=== PATIENT | female | born 1950 | race Caucasian/White ===

== ENCOUNTER 2019-05-26 17:04 | Inpatient (IN) | payer MEDICARE, BC ==
[2019-05-26 17:40] VITALS: BP 122/61
[2019-05-26] MEDS ORDERED: SYNTHROID50 MCG PO (17:51)
[2019-05-26] MEDS ORDERED: ZOLOFT100 MG PO (17:51)
[2019-05-26] MEDS ORDERED: NEXIUM20 MG PO (17:52)
[2019-05-26] MEDS ORDERED: VITAMIN D5000 UNIT PO (17:55)
[2019-05-26] MEDS ORDERED: GLUCOPHAGE500 MG PO (17:56)
[2019-05-26] MEDS ORDERED: COZAAR25 MG PO (17:56)
[2019-05-26] MEDS ORDERED: TRIGLIDE160 MG PO (17:57)
[2019-05-26] MEDS ORDERED: CLARITIN 10 MG10 MG PO (17:57)
[2019-05-26] MEDS ORDERED: CYTOTEC200 MCG PO (17:58)
--- NOTE | 2019-05-26 18:37 | NUR ---
PT ADMITTED FROM [facility] FOR AGGRESSION. [facility] REPORTED THAT THE PT WAS REFUSING CARE AND COMBATIVE WITH STAFF. UPON ADMIT PT YELLING AT NURSE AND VERY AGITATED. PT HAS HER OWN WALKER AND WEARING HER GLASSES. CONSENT FOR ADMIT OBTAINED FROM BROTHER AND POYong VELASQUEZ. PT IS A DNR AND CODE WORD IS SARAH.
[2019-05-26 20:00] VITALS: BP 122/68
--- NOTE | 2019-05-26 23:50 | NUR ---
B.) PT IS ALERT AND ORIENTED TO SELF ONLY. SHE HAS POOR INSIGHT INTO HER SITUATION. SHE HAS LITTLE TO NO SHORT TERM MEMORY. SHE IS ABLE TO AMBULATE WITH WALER. SHE IS PLEASANT WITH STAFF. I.) REDIRECT OFTEN R.) DIFFICULT TO REDIRECT. P.) CONTINUE PLAN OF CARE
[2019-05-27 01:27] VITALS: BP 122/61; BMI 27.4
[2019-05-27 05:56] LABS: BASOPHILS 0.4 % (0-2); EOSINOPHILS 1.4 % (0-7); HEMATOCRIT 38.3 % (36.0-48.0); HEMOGLOBIN 11.3 g/dL (12-16); IMMATURE GRANULOCYTES 0.2 % (0-5); LYMPHOCYTES 18.9 % (15-50); MCH 22.7 pg (26.0-34.0); MCHC 29.5 g/dL (31.0-37.0); MCV 76.9 fL (80.0-100.0); MONOCYTES 14.1 % (2-11); PLATELET COUNT 199 10x3/uL (130-400); RBC 4.98 10x6/uL (4.00-5.40); RDW 15.8 % (11.5-14.5); WBC 4.9 10x3/uL (4.8-10.8)
[2019-05-27 06:17] LABS: ALBUMIN 3.5 g/dL (3.4-5.0); ANION GAP 9.6 mmol/L (8-16); BILIRUBIN - TOTAL 0.31 mg/dL (0.2-1.3); CALCIUM 9.4 mg/dL (8.5-10.1); CARBON DIOXIDE 33.4 mmol/L (21.0-32.0); CHOL - HDL RATIO 4.9 ratio (2.3-4.1); LDL-HDL RATIO 3.4 ratio (1.5-3.5); PROTEIN - SERUM 7.2 g/dL (6.4-8.2); THYROID STIMULATING HORMONE 1.5 uIU/mL (0.36-3.74)
[2019-05-27 08:58] VITALS: BP 121/72
--- NOTE | 2019-05-27 10:00 | NUR ---
RECEIVED PATIENT IN DINING ROOM FOR B'FAST, ALERT, CALM, COOPERATIVE, PLEASANT MOOD, QUITE CONFUSED. AWAITING MED ORDERS AT THIS TIME. NO AGGRESSION OR ADVERSE BEHAVIORS NOTED. CONT TO MONITOR.
[2019-05-27 10:36] VITALS: Wt 72.0 kg
[2019-05-27 20:20] VITALS: BP 140/60
--- NOTE | 2019-05-28 00:55 | NUR ---
B) Patient is alert and oriented to person, calm and cooperative toward staff I) Administered scheduled medications as ordered, monitored for needs R) mediation compliant, quiet and cooperative, P) Continue plan of care.
[2019-05-28 08:11] LABS: RAPID PLASMA REAGIN Non Reactive (Non Reactive)
[2019-05-28 08:57] VITALS: BP 146/70
--- NOTE | 2019-05-28 09:15 | NUR ---
RECEIVED PATIENT IN DINING ROOM FOR B'FAST, ALERT, CALM, CONFUSED, COOPERATIVE MEDS ADMIN PER ORDERS WITH COMPLETE MED COMPLIANCE NOTED. NO AGGRESSION NOTED. CONT POC DIRECTED.
[2019-05-28 11:44] LABS: APPEARANCE HAZY (CLEAR); BACTERIA MANY /hpf (NEGATIVE); BILIRUBIN NEGATIVE (NEGATIVE); COLOR YELLOW (YELLOW); EPITHELIAL CELLS OCC /hpf (0-5); GLUCOSE NEGATIVE (NEGATIVE); KETONE NEGATIVE (NEGATIVE); MUCUS <1+ /lpf (NONE SEEN); NITRITE POSITIVE (NEGATIVE); PROTEIN NEGATIVE (NEGATIVE); RED CELLS - URINE RARE /hpf (0-5); UROBILINOGEN NORMAL (NORMAL)
--- NOTE | 2019-05-28 15:13 | PSY ---
PATIENT NAME:DASHA LUIS MEDICAL RECORD: [id number] : 46 LOCATION:DAMIAN Mcadams8 ADMISSION DATE: 05/26/19 ACCOUNT: [id number] PSYCHIATRIC EVALUATION DATE OF EVALUATION: 05/27/19 IDENTIFYING DATA: The patient is 68 years old and she is admitted to the hospital on a voluntary basis. CHIEF COMPLAINT: Aggression. HISTORY OF PRESENT ILLNESS: The patient lives in a care home. The care home is referring her to us because she has been aggressive there. In addition to the aggression, she has been yelling, refusing care and difficult to manage. The patient has little or no recollection of these events and in fact is only oriented to person. She denies that she would seek to harm herself or others, but it is clear she is quite confused. PAST MEDICAL HISTORY: Significant for diabetes, hypothyroidism, hypertension, and coronary artery disease. PAST PSYCHIATRIC HISTORY: Significant for depression; however, I do not have records regarding any other treatment. She is not taking any medications for dementia, but she clearly has it and it is not something that is new or in the early stages. So, if she has been diagnosed with dementia and I suspect she has, I do not have any knowledge of the details. FAMILY HISTORY: Unknown. The patient is not a good historian. ALLERGIES: PENICILLIN. CURRENT MEDICATIONS: Include Zoloft, Synthroid, Nexium, Glucophage, Cozaar, Claritin, and vitamin D3. SOCIAL HISTORY: The patient denies a history of drug or alcohol use. She says that she was once and that was for 15 years, but she says her 2 weeks ago. She does not know how long she has lived in a care home and in fact, she is not even sure she lives in a care home. She says she has never drank alcohol or smoked cigarettes. She also says she has never worked for a living. 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 MENTAL STATUS EXAMINATION: The patient is awake, alert, and oriented to person only. Her mood is flat. Her affect is constricted. Thought processes are circumstantial. Memory, concentration, and abstraction abilities are moderately impaired and she denies that she would seek to harm herself or others as well as psychotic symptoms. ASSETS: Supportive family members. LIABILITIES: Limited insight. DIAGNOSTIC IMPRESSION: AXIS I: Advanced major neurocognitive disorder of the Alzheimer's type with behavioral disturbances. AXIS II: Deferred. AXIS III: Diabetes, hypertension, hypothyroidism, and coronary artery disease. AXIS IV: Moderate. AXIS V: Global assessment of functioning is 30. PLAN: At this time, the patient is admitted to the hospital for a comprehensive medical, psychological, and social evaluation. She will be treated with both mood stabilizing and memory enhancing medications. Her long-term prognosis is guarded. TRANSINT:[id number] Voice Confirmation ID: [id number] DOCUMENT ID: [id number] ROSS CALDWELL MD at 1513 CC: [id number] DICTATION DATE: 05/27/19 1543 VOCATIONAL ADVISER: 05/27/19 1603 ADM IN [facility] [address] [id number]
--- NOTE | 2019-05-28 20:17 | NUR ---
PATIENT IS CONFUSED, NO YELLING NOTED AND NOT REFUSING CARE. COMPLIANT WITH MEDS. WILL FOLLOW POC
[2019-05-28 21:30] VITALS: BP 100/58
--- NOTE | 2019-05-29 09:59 | NUR ---
B) The patient is awake and alert. She is not yelling or displaying aggression this am. She ambulates with her walker. She needs assist with the toilet. She did go to the bathroom, but she continues to ooze BM. Did assist the patient with cleaning up and providing a clean brief. She has poor insight onto her situation. I) Provide prescribed meds. R) The patient is compliant with meds and unit milieu. P) Continue POC.
--- NOTE | 2019-05-29 11:06 | PN ---
PATIENT:DASHA LUIS MEDICAL RECORD: [id number] LOCATION:DAMIAN MikeYulisa112 ADMISSION DATE: 05/26/19 PROGRESS NOTE DATE OF SERVICE: 05/28/2019 SUBJECTIVE: The patient's case was discussed with staff. She has no new complaint. OBJECTIVE: The patient is in good behavioral control with limited insight about her condition. She tolerates her medicines well. She has not been aggressive and she today did a while personal care. ASSESSMENT: Dementia. PLAN: Current medicines have been reviewed and will be maintained. Long-term prognosis is guarded. TRANSINT:[id number] Voice Confirmation ID: [id number] DOCUMENT ID: [id number] ROSS CALDWELL MD at 1106 CC: [id number] DICTATION DATE: 05/28/19 1524 CORPORATE HUMAN RESOURCES MANAGER: 05/28/19 2312 ADM IN [facility] [address] [id number]
--- NOTE | 2019-05-29 20:15 | NUR ---
PT SITTING IN DAYROOM AND URINATED ALL OVER HERSELF. VERY ODORUS. INFORMED PATIENT SHE WAS GOING TO NEED A SHOWER AND PATIENT RELATED SHE WAS NOT TAKING A SHOWER. INFORMED PATIENT SHE HAD URINE ALL OVER HER AND HAD AN ODOR. STILL REFUSING. INFORMED PATIENT SHE COULD BATHE HERSELF BUT WE WOULD SET THINGS UP FOR HER. PATIENT DID SHOWER WITHOUT FURTHER DISPUTE.
[2019-05-29 22:46] VITALS: BP 114/63
--- NOTE | 2019-05-29 23:44 | NUR ---
REC'D SITTING IN DAYROOM. ORIENTED TO SELF AND DAY. DELUSIONAL AND BELIEVES SHE IS HER BECAUSE SHE WAS HAVING CHEST PAIN AND WAS BROUGHT HERE BY A FRIEND. RELATES THE CHEST PAIN HAS SUBSIDED. PLEASANT WHEN TALKING WITH PATIENT. ADMINISTER MEDS AND MONITOR COMPLIANCE. REORIENT NEEDED. MED COMPLIANT. POOR REORIENTATION DUE TO IMPAIRED ABILITY TO RETAIN INFORMATION. CONTINUE POC AND PROVIDE SAFE ENVIRONMENT.
[2019-05-30 08:00] VITALS: BP 126/69
--- NOTE | 2019-05-30 10:45 | PN ---
PATIENT:DASHA LUIS MEDICAL RECORD: [id number] LOCATION:DAMIAN Mcadams ADMISSION DATE: 05/26/19 PROGRESS NOTE DATE OF SERVICE: 05/29/2019 SUBJECTIVE: The patient's case was discussed with staff. She has no new complaint. OBJECTIVE: The patient is in good behavioral control with limited insight about her condition. She does tolerate her medicines well. ASSESSMENT: Dementia. PLAN: The patient's behavior has been excellent today. She will be monitored for clinical changes associated with the medicines I prescribe and if this level of improvement is maintained, I anticipate she can be discharged soon. TRANSINT:[id number] Voice Confirmation ID: [id number] DOCUMENT ID: [id number] ROSS CALDWELL MD at 1045 CC: [id number] DICTATION DATE: 05/29/19 1201 GUNNER MATE: 05/29/19 1232 ADM IN [facility] [address] [place] [address]
--- NOTE | 2019-05-30 12:26 | NUR ---
PT IS AWAKE AND ALERT TO PERSON AND PLACE. CALM AND COOPERATIVE WITH ASSESSMENT. MED COMPLIANT. NO BEHAVIORS NOTED AT THIS TIME. FALL PRECAUTIONS IN PLACE. WILL CPOC.
--- NOTE | 2019-05-30 20:06 | NUR ---
RECEIVED IN DAYROOM. SITTING IWTH PEERS ART HER SIDE. SOCIAL AT TIMES. CALM AND COOPERATIVE WITH CARE AND ASSESSMENT. NO SIGNS OF AGGRESSION. REDIRECT AND REORIENT NEEDED. CONTINUES TO SIT CALMLY WITH PEERS. CONTINUE PLAN OF CARE
[2019-05-30 20:16] VITALS: BP 138/60
[2019-05-31 08:15] VITALS: BP 123/58
--- NOTE | 2019-05-31 14:04 | NUR ---
PT IS AWAKE AND ALERT TO PERSON. CALM AND COOPERATIVE WITH ASSESSMENT. MED COMPLIANT. PT IS SMILING AND LAUGHING WITH STAFF. NO BEHAVIORS NOTED AT THIS TIME. REDIRECT AND REORIENT NEEDED. FALL PRECAUTIONS IN PLACE. WILL CPOC.
--- NOTE | 2019-05-31 14:41 | NUR ---
SW ATTEMPTED TO CONTACT PT'S CONTACT DG. VOICEMAIL IS NOT SET UP. SW COULDN'T LEAVE MESSAGE.
--- NOTE | 2019-05-31 15:38 | PN ---
PATIENT:DASHA LUIS MEDICAL RECORD: [id number] LOCATION:DAMIAN Gillespie112 ADMISSION DATE: 05/26/19 PROGRESS NOTE DATE OF SERVICE: 05/30/2019 SUBJECTIVE: The patient's case was discussed with staff. She has no new complaint. OBJECTIVE: The patient denies intent to harm herself or others. She tolerates her medicines well. ASSESSMENT: Dementia. PLAN: Brief supportive and educational interventions were made. The patient has been cooperative with personal care and has not been aggressive. I anticipate she can reasonably be transitioned out of the hospital soon if this continues. TRANSINT:[id number] Voice Confirmation ID: [id number] DOCUMENT ID: [id number] ROSS CALDWELL MD at 1538 CC: [id number] DICTATION DATE: 05/30/19 1214 OPERATIONS RESEARCH ENGINEER: 05/30/19 1318 ADM IN [place] [id number] [place] [id number]
[2019-05-31 20:06] VITALS: BP 124/70
--- NOTE | 2019-05-31 21:17 | NUR ---
RECEIVED IN DAYROOM. SOCIALIZING WITH PEERS. CALM AND COOPERATIVE WITH CARE AND ASSESSMENT. NO SIGNS OF AGGRESSION. REDIRECT AND REORIENT NEEDED. IN DAYROOM WITH NURSE AT THIS TIME. CONTINUE PLAN OF CARE
[2019-06-01 08:00] VITALS: BP 125/62
--- NOTE | 2019-06-01 11:23 | PN ---
PATIENT:DASHA LUIS MEDICAL RECORD: [id number] LOCATION:Jose MiguelTHUParas Gillespie112 ADMISSION DATE: 05/26/19 PROGRESS NOTE DATE OF SERVICE: 05/31/2019 SUBJECTIVE: The patient's case was discussed with staff. She has no new complaint. OBJECTIVE: The patient is in good behavioral control with limited insight about her condition. She does tolerate her medicines well. ASSESSMENT: Dementia. PLAN: Current medicines have been reviewed and will be maintained. Long-term prognosis is guarded. Brief supportive and educational interventions were made. TRANSINT:[id number] Voice Confirmation ID: [id number] DOCUMENT ID: [id number] ROSS CALDWELL MD at 1123 CC: [id number] DICTATION DATE: 05/31/19 1721 WINCH RUNNER: 05/31/[address] [facility] [address] [place] [address]
--- NOTE | 2019-06-01 15:08 | NUR ---
PT IS AWAKE AND ALERT TO PERSON ONLY. CALM AND COOPERATIVE WITH ASSESSMENT. MED COMPLIANT. REDIRECT AND REORIENT NEEDED. NO BEHAVIORS NOTED. PT DID ATTEND GROUP TODAY WITH PEERS AND STAFF. FALL PRECAUTIONS IN PLACE. WILL CPOC.
--- NOTE | 2019-06-01 16:07 | NUR ---
Nutrition Follow-up: Diet: Diabetic PO intake: ~75% average x last 6 meals recorded. Significant meds: rocephin, metformin. Labs noted: Glucose 119. Nursing skin assessment reviewed Wt: 159# (05/30/19); admit wt: 164# (05/26/19). -5lb wt difference noted. Last BM 06/01/19 Continue current nutrition regimen as pt appears to be eating well. Will monitor wt and wait for next weight. Noted wts are wheelchair wts so may be scale issue vs true -5# wt loss. May add oral nutrition supplement if wt loss appears legit. RD Following.
--- NOTE | 2019-06-01 19:46 | NUR ---
RECEIVED IN DAYROOM. SITTINGIN A WHEELCHAIR WITH PEERS AT HER SIDE. CALM AND COOPERATIVE WITH CARE AND ASSESMENT. REDIRECT AND REORIENT NEEDED. CONTINUES TO SIT CALMLY IN DAYROOM. CONTINUE PLAN OF CARE
[2019-06-01 20:09] VITALS: BP 109/58
[2019-06-02 08:26] VITALS: BP 127/58
--- NOTE | 2019-06-02 10:00 | NUR ---
RECEIVED PATIENT IN DINING ROOM FOR B'FAST, ALERT, CALM, COOPERATIVE, NO AGGRESSION NOTED, NO YELLING ALOUD NOTED. MEDS ADMIN PER ORDERS WITH COMPLETE MED COMPLIANCE NOTED. COOPERATIVE WITH CARE. CONT POC DIRECTED.
--- NOTE | 2019-06-02 12:53 | PN ---
PATIENT:DASHA LUIS MEDICAL RECORD: [id number] LOCATION:DAMIAN Mcadams ADMISSION DATE: 05/26/19 PROGRESS NOTE DATE OF SERVICE: 06/01/2019 SUBJECTIVE: The patient's case was discussed with staff. She has no new complaint. OBJECTIVE: The patient is in good behavioral control with limited insight about her condition. She tolerates her medicines well. ASSESSMENT: Dementia. PLAN: Current medicines and therapies have been reviewed, both will be maintained. Long-term prognosis is guarded. TRANSINT:[id number] Voice Confirmation ID: [id number] DOCUMENT ID: [id number] ROSS CALDWELL MD at 1253 CC: [id number] DICTATION DATE: 06/01/19 1138 PROSPECTING DRILLER: 06/01/19 1143 ADM IN [facility] [address] [place] [address]
--- NOTE | 2019-06-02 18:48 | NUR ---
RECEIVED IN DAYROOM. SITTING IN A CHAIR WITH PEERS AT HER SIDE. CALM AND COOPERATIVE WITH CARE AND ASSESSMENT. NO SIGNS OF AGGRESSION. REDIRECT AND REORIENT NEEDED. CONTINUES TO SOCIALIZE WITH PEERS AT TIMES. CONTINUE PLAN OF CARE
[2019-06-02 20:01] VITALS: BP 115/47
[2019-06-03 08:50] VITALS: BP 141/54
--- NOTE | 2019-06-03 12:03 | NUR ---
NUTRITION F/U PT TOLERATING DIABETIC DIET. 50 TO 100% INTAKE RECENT MEALS. WT DOWN FROM ADMIT. +BM RECORDED ON 06/01/19. WILL CONTINUE TO MONITOR PO INTAKE AND WT. RD FOLLOWING
--- NOTE | 2019-06-03 13:38 | NUR ---
B) The patient is awake and alert, she is pleasant. She is calm, she has not shown any aggression today. She amulates with a walker. She is helpful to staff and her peers. I) Provide prescribed meds, redirect as needed. P) Continue POC.
--- NOTE | 2019-06-03 15:01 | PN ---
PATIENT:DASHA LUIS MEDICAL RECORD: [id number] LOCATION:DAMIAN Mcadams ADMISSION DATE: 05/26/19 PROGRESS NOTE DATE OF SERVICE: 06/02/2019 SUBJECTIVE: The patient's case was discussed with staff. She has no new complaint. OBJECTIVE: The patient is in good behavioral control. She has poor insight about her condition. She has not been aggressive today. ASSESSMENT: Dementia. PLAN: Brief supportive and educational interventions were made. Long-term prognosis is guarded. TRANSINT:[id number] Voice Confirmation ID: [id number] DOCUMENT ID: [id number] ROSS CALDWELL MD at 1501 CC: [id number] DICTATION DATE: 06/02/19 170 KELLY MACHINE OPERATOR: 06/02/19 4059 ADM IN [place] [id number] [place] [address]
[2019-06-03 20:20] VITALS: BP 128/62
--- NOTE | 2019-06-03 22:08 | NUR ---
REC'D SITTING IN DAYROOM. SITS WITH PEERS HOWEVER HAS MINIMAL INTERACTION WITH PEERS AND STAFF. SLOW WITH RESPONSES. ADMINISTER MEDS AND MONITOR COMPLIANCE. OBTAIN VERBAL NO HARM CONTRACT. MED COMPLIANT. CONTRACTS VERBALLY FOR NO SELF HARM. CONTINUE POC AND PROVIDE SAFE ENVIRONMENT.
--- NOTE | 2019-06-04 07:43 | NUR ---
B) The patient is awake and alert. She is pleasant and calm. She has not shown any aggression or yelling today. I) Provide prescribed meds. R) The patient is compliant with meds. P) Continue POC.
[2019-06-04 09:39] VITALS: BP 113/56
--- NOTE | 2019-06-04 14:51 | PN ---
PATIENT:DASHA LUIS MEDICAL RECORD: [id number] LOCATION:DAMIAN Gillespie112 ADMISSION DATE: 05/26/19 PROGRESS NOTE DATE OF SERVICE: 06/03/2019 SUBJECTIVE: The patient's case was discussed with staff. She has no new complaint. OBJECTIVE: The patient is in good behavioral control. She has not been aggressive. ASSESSMENT: Dementia. PLAN: I anticipate the patient can be transitioned back to the hospital soon. She is eating and sleeping well and has had no significant aggression today. TRANSINT:[id number] Voice Confirmation ID: [id number] DOCUMENT ID: [id number] ROSS CALDWELL MD at 1451 CC: [id number] DICTATION DATE: 06/03/19 1551 CREDIT COLLECTIONS ANALYST: 06/03/19 1640 ADM IN [facility] [address] [place] [address]
[2019-06-04 20:00] VITALS: BP 115/58
--- NOTE | 2019-06-04 23:18 | NUR ---
B.) PT IS ALERT AND ORIENTED TO SELF ONLY. SHE HAS POOR INSIGHT INTO HER SITUATION. SHE IS ABLE TO MAKE HER NEEDS KNOWN. SHE AMBULATES WITH A WALKER WITH NO PROBLEMS. I.) PROVIDE PM MEDICATIONS. REDIRECT NEEDED. R.) COMPLIANT WITH ALL MEDICATIONS. SHE IS DIFFICULT TO REDIRECT. P.) CONTINUE PLAN OF CARE
--- NOTE | 2019-06-05 08:02 | PN ---
PATIENT:DASHA LUIS MEDICAL RECORD: [id number] LOCATION:DAMIAN Mcadams ADMISSION DATE: 05/26/19 PROGRESS NOTE DATE OF SERVICE: 06/04/2019 SUBJECTIVE: The patient's case was discussed with staff. She has no new complaint. OBJECTIVE: The patient is in good behavioral control with very limited insight about her situation. She has not been aggressive. ASSESSMENT: Dementia. PLAN: Current medicines have been reviewed. She will be monitored for clinical changes associated with their use. Her long-term prognosis is guarded. TRANSINT:[id number] Voice Confirmation ID: [id number] DOCUMENT ID: [id number] ROSS CALDWELL MD at 0802 CC: [id number] DICTATION DATE: 06/04/19 1515 CREDIT PRODUCT ANALYST: 06/04/192126 ADM IN [facility] [address] [place] [address]
[2019-06-05 09:16] VITALS: BP 115/55
--- NOTE | 2019-06-05 11:08 | NUR ---
The patient is calm and pleasant she is not showing any aggression today. She ambulates with a walker. Provide prescribed meds. The patient is compliant with meds. Continue POC.
--- NOTE | 2019-06-05 19:53 | NUR ---
RECEIVED IN DAYROOM. SOCIALIZING WITH PEERS. CALM AND COOPERATIVE WITH CARE AND ASSESSMENT. NO AGGRESSIVE BEHAVIORS. REDIRECT AND REORIENT NEEDED. CONTINUES TO SOCIALIZE WHILE WAITING ON PM MEDICATIONS. CONTINUE PLAN OF CARE.
[2019-06-05 20:00] VITALS: BP 122/51
[2019-06-06 08:00] VITALS: BP 113/81
--- NOTE | 2019-06-06 16:54 | NUR ---
PATIENT HAS HAD UNEVENTFUL DAY SO FAR THIS SHIFT, CALM, ALERT, COOPERATIVE, CONFUSED. MEDS ADMIN PER ORDERS WITH COMPLETE MED COMPLIANCE NOTED. CONT POC DIRECTED.
[2019-06-06 20:10] VITALS: BP 110/52
--- NOTE | 2019-06-07 05:01 | NUR ---
B.) PT IS ALERT AND ORIENTED TO SELF ONLY. SHE HAS POOR INSIGHT INTO HER SITUATION. SHE IS ABLE TO MAKE HER NEEDS KNOWN. SHE AMBULATES WITH A WALKER AND SHE IS PLEASANT WITH STAFF AND PEERS. I.) PROVIDE PM MEDICATIONS. ASSIST WITH ADLS NEEDED. R.) COMPLIANT WITH ALL MEDICATIONS AND COOPERATIVE WITH ADLS. P.) CONTINUE PLAN OF CARE
[2019-06-07 08:28] VITALS: BP 129/62
--- NOTE | 2019-06-07 11:42 | NUR ---
PT IS AWAKE AND ALERT TO PERSON ONLY. CALM AND COOPERATIVE WITH ASSESSMENT. MED COMPLIANT. NO BEHAVIORS NOTED AT THIS TIME. REDIRECT AND REORIENT NEEDED. FALL PRECAUTIONS IN PLACE. WILL CPOC.
--- NOTE | 2019-06-07 15:49 | PN ---
PATIENT:DASHA LUIS MEDICAL RECORD: [id number] LOCATION:DAMIAN MikeYulisa112 ADMISSION DATE: 05/26/19 PROGRESS NOTE DATE OF SERVICE: 06/06/2019 SUBJECTIVE: The patient's case was discussed with staff. She has no new complaint. OBJECTIVE: The patient is in good behavioral control with poor insight about her condition. She is tolerating her medicines well. ASSESSMENT: Dementia. PLAN: Brief supportive and educational interventions were made. I anticipate she can be transitioned out of the hospital tomorrow if this level of improvement continues. TRANSINT:[id number] Voice Confirmation ID: [id number] DOCUMENT ID: [id number] ROSS CALDWELL MD at 1549 CC: [id number] DICTATION DATE: 06/06/19 1200 THERAPEUTIC ASSISTANT: 06/06/19 1211 ADM IN [facility] [address] [place] [address]
[2019-06-07] MEDS ORDERED: TRICOR145 MG PO (16:36)
[2019-06-07] MEDS ORDERED: VITAMIN D5000 UNIT PO (16:37)
[2019-06-07] MEDS ORDERED: VITAMIN B-121000 MCG PO (16:37)
[2019-06-07 20:05] VITALS: BP 120/56
--- NOTE | 2019-06-07 21:15 | NUR ---
RECEIVED IN DAYROOM. SITTING IN A CHAIR WITH PEERS AT HER SIDE. CALM AND COOPERATIVE WITH CARE AND ASSESSMENT. NO SIGNS OF AGGRESSION. REDIRECT AND REORIENT NEEDED. CONTINUES TO SIT CALMLY IN DAYROOM. CONTINUE PLAN OF CARE
[2019-06-08 08:18] VITALS: BP 115/48
--- NOTE | 2019-06-08 10:48 | NUR ---
KATRIN ATTEMPTED TO CONTACT DG TO ALERT OF PT DISCHARGING BACK TO [facility] AND THERE WAS NO WAY TO LEAVE A VOICEMAIL.
--- NOTE | 2019-06-08 15:28 | PN ---
PATIENT:DASHA LUIS MEDICAL RECORD: [id number] LOCATION:DAMIAN Mcadams ADMISSION DATE: 05/26/19 PROGRESS NOTE DATE OF SERVICE: 06/07/2019 SUBJECTIVE: The patient's case was discussed with staff. She has no new complaint. OBJECTIVE: The patient is eating and sleeping well. She is only partially oriented. ASSESSMENT: Dementia. PLAN: Brief supportive and educational interventions were made. Long-term prognosis is guarded. TRANSINT:[id number] Voice Confirmation ID: [id number] DOCUMENT ID: [id number] ROSS CALDWELL MD at 1528 CC: [id number] DICTATION DATE: 06/07/19 1635 SLUSHER OPERATOR: 06/07/19 2151 ADM IN [place] [id number] [place] [address]
--- NOTE | 2019-06-09 14:20 | PN ---
PATIENT:DASHA LUIS MEDICAL RECORD: [id number] LOCATION:DAMIAN Mcadams ADMISSION DATE: 05/26/19 PROGRESS NOTE DATE OF SERVICE: 06/08/2019 SUBJECTIVE: The patient's case was discussed with staff. She has no new complaint. OBJECTIVE: The patient is in good behavioral control with limited insight about her condition. She does tolerate her medicines well. ASSESSMENT: Dementia. PLAN: Brief supportive and educational interventions were made. Long-term prognosis is guarded. TRANSINT:[id number] Voice Confirmation ID: [id number] DOCUMENT ID: [id number] ROSS CALDWELL MD at 1420 CC: [id number] DICTATION DATE: 06/08/19 1552 SUBWAY CONDUCTOR: 06/08/19 2214 DIS IN 06/08/19 [facility] [address] [place] [address]
--- NOTE | 2019-06-11 14:32 | DS ---
PATIENT:DASHA LUIS :46 MEDICAL RECORD: [id number] DISCHARGE SUMMARY ADMISSION DATE: 05/26/19 DISCHARGE DATE: 06/08/19 IDENTIFYING DATA: The patient is 68 years old and she was admitted to the hospital on a voluntary basis because of aggression. The patient lives in a local shelter. The patient referred to us because of aggressive behavior. She has been yelling, confused, and refusing care. She has also been aggressive with staff and other patients. She is very impaired and only oriented to person. She has no recollection of the events that precipitated the admission. HOSPITAL COURSE: The patient was admitted to the hospital and fully evaluated from both a medical, psychological, and social standpoint. She was treated with both mood stabilizing and memory enhancing medications and after some adjustment of those medicines, was sufficiently improved such that she could be reasonably discharged back to the shelter. At the time of discharge, she was not acutely dangerous to herself or others. DISCHARGE DIAGNOSES: Advanced major neurocognitive disorder of the Alzheimer's type with behavioral disturbances, diabetes, hypertension, hypothyroidism, and coronary artery disease. At the time of discharge, the patient was tolerating her medicines well. Her long-term prognosis is guarded based upon the fact that the condition is degenerative and followup is to be with her primary care shelter physician. TRANSINT:[id number] Voice Confirmation ID: [id number] DOCUMENT ID: [id number] ROSS CALDWELL MD at 1432 CC: [id number] DICTATION DATE: 06/10/19 1534 FOOD AND BEVERAGE SERVER: 06/11/19 0351 DIS IN 06/08/19 [place] [id number] [place] [address]
== END 2019-06-08 13:30 | DRG 57 ==
LOC: D.PSYCH 17:04
PROVIDERS: ADMIT Psychiatry & Neurology Psychiatry; ATTEND Psychiatry & Neurology Psychiatry
DX: G30.1 Alzheimer's disease with late onset (principal); F02.81 Dementia in other diseases classified elsewhere, unspecified severity, with behavioral disturbance; N39.0 Urinary tract infection, site not specified; E03.9 Hypothyroidism, unspecified; I25.10 Atherosclerotic heart disease of native coronary artery without angina pectoris; E11.22 Type 2 diabetes mellitus with diabetic chronic kidney disease; I12.9 Hypertensive chronic kidney disease with stage 1 through stage 4 chronic kidney disease, or unspecified chronic kidney disease; N18.9 Chronic kidney disease, unspecified; E78.5 Hyperlipidemia, unspecified; F32.9 Major depressive disorder, single episode, unspecified; E53.8 Deficiency of other specified B group vitamins